=== PATIENT | female | born 1990 | race Caucasian/White ===

== ENCOUNTER 2019-01-30 18:38 | Emergency (ER) | payer SELFPAY ==
--- OUTSIDE RECORDS SUMMARY | 2019-01-30 18:40 | XMS REPORT ---
:1990 [facility] Address [address] [place] [address] [address] [place] [address] Care Team Providers Name Role Phone Unavailable Unavailable Unavailable Payers Payer Name Policy Type Policy Number Effective Date Expiration Date Problems This patient has no known problems. Allergies, Adverse Reactions, Alerts Allergy Allergy Status Severity Reaction(s) Onset Inactive Treating Comments Name Type Date Date Clinician No Known DA Active U 2012-12 Allergies -09 00:00:0 0 Medications This patient has no known medications.
[2019-01-30 19:47] LABS: Absolute Lymphocytes (CBC) 1.8 K/uL (0.7-4.9); Basophils % 1.2 % (0-1.3); Hematocrit 35.5 % (36.0-45.0); Lymphocytes % 35.3 % (15.3-44.8); MPV 8.6 fL (7.6-11.3); RBC Red Blood Cell Count 3.97 M/uL (3.86-4.86)
[2019-01-30 19:56] LABS: Urine Blood NEGATIVE (NEG); Urine Glucose NEGATIVE (NEG); Urine Protein NEGATIVE (NEG); Urine Specific Gravity 1.015 (1.005-1.030); Urine pH 7.5 (5.0-7.0)
[2019-01-30] MEDS ORDERED: NA CHLORIDE 0.9% 1,000 ML ONE (19:57)
[2019-01-30 20:08] LABS: Urine Bacteria LOADED /HPF (<20); Urine Culture Reflex Order REFLEXED; Urine RBC <5 /HPF (NONE SEEN)
[2019-01-30 20:08] LABS: Albumin 4.2 g/dL (3.4-5.0); Bilirubin Direct 0.1 mg/dL (0-0.2); Bilirubin Total 0.4 mg/dL (0.2-1.0); Potassium 3.4 mmol/L (3.5-5.1); Protein, Total 7.7 g/dL (6.4-8.2)
[2019-01-30] MEDS ORDERED: CEFTRIAXONE/SWI 1gm 1 GM/10 ML SYR ONE (21:09)
--- NOTE | 2019-01-30 23:43 | EDPHYS ---
Physician Documentation [facility] Name: Becca Sloan Age: 28 yrs Sex: Female : 1990 Arrival Date: 01/30/2019 Time: 18:42 Bed 24 Private MD: ED Physician Noé Hendrix HPI: 01/30 22:14 This 28 yrs old Female presents to ER via Ambulatory with complaints of tw4 Vomiting, Abdominal Swelling. 22:14 The patient presents to the emergency department with nausea, vomiting. tw4 22:14 Onset: The symptoms/episode began/occurred 1 month(s) ago. Possible causes:. The tw4 symptoms are aggravated by nothing. The symptoms are alleviated by nothing. The patient has not experienced similar symptoms in the past. 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 - Social history:: Smoking status: . - Ebola Screening: : Patient denies travel to an Ebola-affected area in the 21 days before illness onset. ROS: 22:14 Constitutional: Negative for fever, chills, and weight loss, Eyes: Negative for injury, tw4 pain, redness, and discharge, Cardiovascular: Negative for chest pain, palpitations, and edema, Respiratory: Negative for shortness of breath, cough, wheezing, and pleuritic chest pain, Abdomen/GI: Negative for abdominal pain, nausea, vomiting, diarrhea, and constipation, Back: Negative for injury and pain, Skin: Negative for injury, rash, and discoloration, Neuro: Negative for headache, weakness, numbness, tingling, and seizure. Exam: 22:14 Constitutional: This is a well developed, well nourished patient who is awake, alert, tw4 and in no acute distress. Head/Face: Normocephalic, atraumatic. Chest/axilla: Normal chest wall appearance and motion. Nontender with no deformity. No lesions are appreciated. Cardiovascular: Regular rate and rhythm with a normal S1 and S2. No gallops, murmurs, or rubs. Normal PMI, no JVD. No pulse deficits. Respiratory: Lungs have equal breath sounds bilaterally, clear to auscultation and percussion. No rales, rhonchi or wheezes noted. No increased work of breathing, no retractions or nasal flaring. Abdomen/GI: Soft, non-tender, with normal bowel sounds. No distension or tympany. No guarding or rebound. No evidence of tenderness throughout. Back: No spinal tenderness. No costovertebral tenderness. Full range of motion. MS/ Extremity: Pulses equal, no cyanosis. Neurovascular intact. Full, normal range of motion. Neuro: Awake and alert, GCS 15, oriented to person, place, time, and situation. Cranial nerves II-XII grossly intact. Motor strength 5/5 in all extremities. Sensory grossly intact. Cerebellar exam normal. Normal gait. Vital Signs: 19:08 BP 117 / 81; Pulse 80; Resp 17; Temp 98.5(TE); Pulse Ox 100% on R/A; Weight 61.23 kg tw2 (R); Height 5 ft. 9 in. (175.26 cm); Pain 5/10; 20:00 BP 121 / 81; Pulse 81; Resp 18; Pulse Ox 100% on R/A; mg2 23:42 BP 99 / 67; Pulse 73; Resp 18; Pulse Ox 100% on R/A; mg2 19:08 Body Mass Index 19.94 (61.23 kg, 175.26 cm) tw2 MDM: 19:11 Patient medically screened. la1 01/31 04:19 Data reviewed: vital signs, nurses notes. Data interpreted: Pulse oximetry: tw4 Interpretation: normal. Counseling: I had a detailed discussion with the patient and/or guardian regarding: the historical points, exam findings, and any diagnostic results supporting the discharge/admit diagnosis. Special discussion: I discussed with the patient/guardian in detail that at this point there is no indication for admission to the hospital. It is understood, however, that if the symptoms persist or worsen the patient needs to return immediately for re-evaluation. 01/30 19:13 Order name: Basic Metabolic Panel tw4 01/30 19:13 Order name: CBC with Diff tw4 01/30 19:13 Order name: Creatinine for Radiology [facility] 01/30 19:13 Order name: Hepatic Function [facility] 01/30 19:13 Order name: Lipase [facility] 01/30 19:45 Order name: Urine Microscopic Only; Complete Time: 22:51 mg2 01/30 19:13 Order name: IV Saline Lock; Complete Time: 19:32 tw4 01/30 19:48 Order name: Urine Dipstick--Ancillary (enter results) [facility] 01/30 19:48 Order name: Urine --Ancillary (enter results) [facility] 01/30 20:10 Order name: Urine Culture [facility] [place] 01/30 20:34 Order name: CT Abd/Pelvis - IV Contrast Only [facility] 01/30 22:53 Order name: US Abdomen Limited [facility] 01/30 19:13 Order name: Labs collected and sent; Complete Time: 19:32 tw4 Administered Medications: 01/30 19:58 Drug: NS 0.9% 1000 ml Route: IV; Rate: 1 bolus; Site: right antecubital; mg2 21:12 Follow up: Response: No adverse reaction; IV Status: Completed infusion; IV Intake: mg2 1000ml 21:12 Drug: Rocephin - (cefTRIAXone) 1 grams Route: IVPB; Infused Over: 30 mins; Site: right mg2 antecubital; 22:37 Follow up: Response: No adverse reaction; IV Status: Completed infusion mg2 Disposition: 01/30/19 23:42 Discharged to Home. Impression: Vomiting, unspecified, Cholelithiasis, Lower abdominal pain, unspecified, Urinary tract infection, site not specified. - Condition is Stable. - Discharge Instructions: Abdominal Pain, Adult, Biliary Colic, Adult, Nausea and Vomiting, Adult, Urinary Tract Infection, Adult. - Prescriptions for Zofran 4 mg Oral Tablet - take 1 tablet by ORAL route every 12 hours As needed; 6 tablet. Pyridium 200 mg Oral Tablet - take 1 tablet by ORAL route every 8 hours for 3 days; 9 tablet. Macrobid 100 mg Oral Capsule - take 1 capsule by ORAL route every 12 hours for 10 days; 20 capsule. - Medication Reconciliation Form, Thank You Letter, Antibiotic Education, Prescription Opioid Use form. - Follow up: Private Physician; When: Upon discharge from the Emergency Department; Reason: Recheck today's complaints, Continuance of care. - Problem is new. - Symptoms have improved. Signatures: Dispatcher [employer] EDMS Flaco Enrique, DIRECTOR BUSINESS INTEGRATION-C DIRECTOR BUSINESS INTEGRATION-Cla1 Cassidy Davis RN RN tw2 Noé Hendrix MD MD tw4 Gary Werner, RN RN mg2 Corrections: (The following items were deleted from the chart) 23:44 23:42 01/30/2019 23:42 Discharged to Home. Impression: Vomiting, unspecified; tw4 Cholelithiasis; Lower abdominal pain, unspecified. Condition is Stable. Forms are Medication Reconciliation Form, Thank You Letter, Antibiotic Education, Prescription Opioid Use. Follow up: Private Physician; When: Upon discharge from the Emergency Department; Reason: Recheck today's complaints, Continuance of care. Problem is new. Symptoms have improved. tw01/31 00:01 01/30 23:44 01/30/2019 23:42 Discharged to Home. Impression: Vomiting, unspecified; mg2 Cholelithiasis; Lower abdominal pain, unspecified; Urinary tract infection, site not specified. Condition is Stable. Discharge Instructions: Abdominal Pain, Adult, Biliary Colic, Adult, Nausea and Vomiting, Adult. Prescriptions for Zofran 4 mg Oral Tablet - take 1 tablet by ORAL route every 12 hours As needed; 6 tablet. and Forms are Medication Reconciliation Form, Thank You Letter, Antibiotic Education, Prescription Opioid Use. Follow up: Private Physician; When: Upon discharge from the Emergency Department; Reason: Recheck today's complaints, Continuance of care. Problem is new. Symptoms have improved. tw4
--- NOTE | 2019-01-30 23:43 | ER ---
Nurse's Notes [facility] Name: Becca Sloan Age: 28 yrs Sex: Female : 1990 Arrival Date: 01/30/2019 Time: 18:42 Bed 24 Private MD: Diagnosis: Vomiting, unspecified;Cholelithiasis;Lower abdominal pain, unspecified;Urinary tract infection, site not specified Presentation: 01/30 19:06 Presenting complaint: Patient states: for about a month now i havent been able to keep tw2 anything, not even liquids, and my i have a swollen stomach for about a month. Transition of care: patient was not received from another setting of care. Onset of symptoms was January 30, 2019. Risk Assessment: Do you want to hurt yourself or someone else? Patient reports no desire to harm self or others. Initial Sepsis Screen: Does the patient meet any 2 criteria? No. Patient's initial sepsis screen is negative. Does the patient have a suspected source of infection? No. Patient's initial sepsis screen is negative. Care prior to arrival: None. 19:06 Method Of Arrival: Ambulatory tw2 19:06 Acuity: GREGG 3 tw2 Triage Assessment: 19:07 General: Appears in no apparent distress. slender, Behavior is calm, cooperative, tw2 appropriate for age. Pain: Complains of pain in abdomen. GI: Reports lower abdominal pain, upper abdominal pain, constipation, diarrhea, intolerance of fluids, intolerance of food, nausea. 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 - Social history:: Smoking status: . - Ebola Screening: : Patient denies travel to an Ebola-affected area in the 21 days before illness onset. Screenin:40 Abuse screen: Denies threats or abuse. Denies injuries from another. Nutritional mg2 screening: No deficits noted. Tuberculosis screening: No symptoms or risk factors identified. Fall Risk IV access (20 points). Assessment: 20:39 General: Appears in no apparent distress. comfortable, Behavior is calm, cooperative. mg2 Pain: Complains of pain in abdomen Pain does not radiate. Pain currently is 5 out of 10 on a pain scale. Quality of pain is described as aching, Pain began gradually, Is intermittent. Neuro: Level of Consciousness is awake, alert, obeys commands, Oriented to person, place, time, situation. Cardiovascular: Capillary refill < 3 seconds Patient's skin is warm and dry. Respiratory: Airway is patent Respiratory effort is even, unlabored, Respiratory pattern is regular, symmetrical. GI: Abdomen is non-distended, Reports lower abdominal pain, vomiting. : Urine is cloudy. EENT: No signs and/or symptoms were reported regarding the EENT system. Derm: Skin is intact, is healthy with good turgor, Skin is pink, warm \T\ dry. normal. Musculoskeletal: Circulation, motion, and sensation intact. Capillary refill < 3 seconds. 22:37 Reassessment: Patient appears in no apparent distress at this time. Patient and/or mg2 family updated on plan of care and expected duration. Pain level reassessed. Patient is alert, oriented x 3, equal unlabored respirations, skin warm/dry/pink. 22:55 Reassessment: Patient appears in no apparent distress at this time. Patient and/or mg2 family updated on plan of care and expected duration. Pain level reassessed. Patient is alert, oriented x 3, equal unlabored respirations, skin warm/dry/pink. patient informed that she will do abdominal ultrasound tonight. 23:04 Reassessment: pile driving technician at bedside doing the procedure. mg2 01/31 00:00 Reassessment: Patient denies pain at this time. Patient states feeling better. mg2 Vital Signs: 01/30 19:08 BP 117 / 81; Pulse 80; Resp 17; Temp 98.5(TE); Pulse Ox 100% on R/A; Weight 61.23 kg tw2 (R); Height 5 ft. 9 in. (175.26 cm); Pain 5/10; 20:00 BP 121 / 81; Pulse 81; Resp 18; Pulse Ox 100% on R/A; mg2 23:42 BP 99 / 67; Pulse 73; Resp 18; Pulse Ox 100% on R/A; mg2 19:08 Body Mass Index 19.94 (61.23 kg, 175.26 cm) tw2 ED Course: 18:42 Patient arrived in ED. mr 19:07 Triage completed. tw2 19:07 Arm band placed on. tw2 19:12 Noé Hendrix MD is Attending Physician. tw4 19:25 Gary Werner, TYLER is Primary Nurse. mg2 19:31 Initial lab(s) drawn, by me, sent to lab. Inserted saline lock: 20 gauge in right lt1 antecubital area, using aseptic technique. 20:41 Patient has correct armband on for positive identification. mg2 20:41 No provider procedures requiring assistance completed. mg2 21:10 CT Abd/Pelvis - IV Contrast Only In Process Unspecified. EDMS 23:23 US Abdomen Limited In Process Unspecified. EDMS 01/31 00:01 IV discontinued, intact, bleeding controlled, No redness/swelling at site. Pressure mg2 dressing applied. Administered Medications: 01/30 19:58 Drug: NS 0.9% 1000 ml Route: IV; Rate: 1 bolus; Site: right antecubital; mg2 21:12 Follow up: Response: No adverse reaction; IV Status: Completed infusion; IV Intake: mg2 1000ml 21:12 Drug: Rocephin - (cefTRIAXone) 1 grams Route: IVPB; Infused Over: 30 mins; Site: right mg2 antecubital; 22:37 Follow up: Response: No adverse reaction; IV Status: Completed infusion mg2 Intake: 21:12 IV: 1000ml; Total: 1000ml. mg2 Outcome: 23:42 Discharge ordered by . tw4 01/31 00:01 Discharged to home ambulatory, with family. mg2 Condition: stable Discharge instructions given to patient, family, Instructed on discharge instructions, follow up and referral plans. medication usage, Demonstrated understanding of instructions, follow-up care, medications, Prescriptions given X 3. 00:01 Patient left the ED. mg2 Addendum: 02/02/2019 08:51 Addendum: Culture Results: Positive urine culture. No further action required. Bacteria i w sensitive to prescribed antibiotic. Signatures: Dispatcher [employer] EDMI Jojo Benjamin Gianna Ch RN RN iw Cassidy Davis RN RN tw2 Noé Hendrix MD MD tw4 Gardose, Gary, RN RN mg2 Silveira, Radha lt1
[2019-01-31 02:49] VITALS: TEMP 98.5; O2SAT 100
[2019-01-31 02:52] VITALS: BP 99/67
--- NOTE | 2019-01-31 08:04 | RAD REPORT ---
EXAM DESCRIPTION: US - Abdomen Exam Limited - 01/30/2019 11:23 pm CLINICAL HISTORY: Abdominal pain. COMPARISON: None. FINDINGS: Multiple gallstones. The gallbladder wall is not thickened. The biliary tree is normal caliber. IMPRESSION: Cholelithiasis without evidence cholecystitis
--- NOTE | 2019-01-31 10:47 | RAD REPORT ---
EXAM DESCRIPTION: CT - Abdomen Pelvis W Contrast - 01/31/2019 3:09 am CLINICAL HISTORY: 28 years Female ABD PAIN TECHNIQUE: Contiguous axial images obtained through the abdomen and pelvis following intravenous con trast administration. Coronal and sagittal reformatted images provided. This CT exam was performed according to our departmental dose-optimization program, which includes on e or more of the following dose reduction techniques: automated exposure control, adjustment of the m A and/or kV according to patient size, and/or use of iterative reconstruction technique. COMPARISON: No prior exams provided for comparison. FINDINGS: There are multiple gallstones noted, including a 7 mm stone in the gallbladder neck. Possi ble mild gallbladder wall thickening without definite pericholecystic fluid or biliary dilatation. The lung bases, liver, pancreas, spleen, adrenal glands, kidneys, uterus, and urinary bladder are nor mal. There is trace free fluid in the cul-de-sac with right ovarian follicles, a partially collapsed left ovarian corpus luteum, and mild venous prominence in the left adnexa. There is no bowel inflammation, obstruction, or free intraperitoneal air. The appendix is normal. No abdominal aortic aneurysm. Mild levoconvex curvature of the upper lumbar spine without acute fract ure or aggressive osseous lesion. IMPRESSION: Cholelithiasis with possible mild gallbladder wall thickening. If there is right upper q uadrant pain, ultrasound is recommended. Trace free fluid in the cul-de-sac with a left ovarian corpus luteum in right ovarian follicles, phys iologic in appearance. No other acute findings in the abdomen or pelvis. Normal appendix. Electronically signed by: Patty Weir MD 01/30/2019 9:42 PM FINANCIAL SERVICES REPRESENTATIVE Due to temporary technical issues with the PACS/Fluency reporting system, reports are being signed by the in house radiologist as a courtesy to ensure prompt reporting. The interpreting radiologist is f ositoly responsible for the content of the report.
== END 2019-01-31 00:01 | disposition home or self-care (01) ==
LOC: ER 18:38
DX: K80.20 Calculus of gallbladder without cholecystitis without obstruction (principal); N39.0 Urinary tract infection, site not specified; R10.30 Lower abdominal pain, unspecified; F60.3 Borderline personality disorder
CPT/HCPCS: 36415; 74177; 76705; 80048; 80076; 81003; 81015; 81025; 83690; 85025; 87077; 87086; 87088; 87186; 96361; 96365; 99284; J0696; J7030; Q9967

== ENCOUNTER 2019-10-28 14:51 | Emergency (ER) | payer SELFPAY ==
--- OUTSIDE RECORDS SUMMARY | 2019-10-28 14:53 | XMS REPORT | Continuity of Care Document ---
:1990 Author Organization [facility] t Address [address] [place] [address] Care Team Providers Name Role Phone Unavailable Unavailable Unavailable Payers Payer Name Policy Type Policy Number Effective Date Expiration Date S ource Problems This patient has no known problems. Allergies, Adverse Reactions, Alerts Allergy Allergy Status Severity Reaction(s) Onset Inactive Treating Comm ents Source Name Type Date Date Clinician No Known DA Active U 2012-02 [facility] Allergie 02-27 Clear s 00:00: Mackey 00 [facility] Medications This patient has no known medications. Procedures This patient has no known procedures. Results This patient has no known results.
[2019-10-28] MEDS ORDERED: NA CHLORIDE 0.9% 1,000 ML ONE (15:39)
[2019-10-28] MEDS ORDERED: MORPHINE 4 MG/ML SYR ONE (15:39)
[2019-10-28] MEDS ORDERED: ONDANSETRON 4 MG/2 ML VIAL ONE (15:39)
[2019-10-28 15:51] LABS: Urine Blood TRACE (NEG); Urine Glucose NEGATIVE (NEG); Urine Protein NEGATIVE (NEG); Urine Specific Gravity 1.025 (1.005-1.030)
[2019-10-28 15:52] LABS: Absolute Lymphocytes (CBC) 1.4 K/uL (0.7-4.9); Basophils % 0.8 % (0-1.3); Hematocrit 34.1 % (36.0-45.0); Lymphocytes % 29.6 % (15.3-44.8); MPV 8.8 fL (7.6-11.3); RBC Red Blood Cell Count 3.95 M/uL (3.86-4.86)
[2019-10-28 16:05] LABS: BUN Blood Urea Nitrogen 13 mg/dL (7-18); Bicarbonate 29 mmol/L (21-32); Glucose Level 117 mg/dL (74-106); Potassium 3.4 mmol/L (3.5-5.1); Sodium Level 141 mmol/L (136-145)
--- NOTE | 2019-10-28 16:36 | RAD REPORT ---
EXAM DESCRIPTION: CT - Abdomen Pelvis W Contrast - 10/28/2019 4:22 pm CLINICAL HISTORY: ABD PAIN, right lower quadrant pain, diarrhea, history of endometriosis COMPARISON: Abdomen Pelvis W Contrast dated 01/30/2019 TECHNIQUE: Biphasic, helical CT imaging of the abdomen and pelvis was performed following 100 ml non -ionic IV contrast. No oral contrast given. All CT scans are performed using dose optimization technique as appropriate and may include automated exposure control or mA/KV adjustment according to patient size. FINDINGS: No suspicious findings in the lung bases. The liver, spleen, and pancreas show no suspicious findings. Multi stone cholelithiasis noted as prev iously seen. No active gallbladder or biliary tree finding. Symmetric renal function is seen with no hydronephrosis or suspicious renal mass. No pyelonephritis o r acute parenchymal process. No bladder abnormalities. No adrenal abnormalities. Uterus and ovaries s how no suspicious findings. Tubal ligation clips are present. No dilated bowel loops or bowel wall thickening. Appendix is identified and normal. Moderate stool vo lume is present in the colon. No free air or pneumatosis. Trace free fluid in the pelvis is within ph ysiologic limits. No hernia, mass or bulky lymphadenopathy. No suspicious bony findings. IMPRESSION: Contrast enhanced CT abdomen and pelvis showing no significant or suspicious finding.
--- NOTE | 2019-10-28 16:49 | EDPHYS ---
Physician Documentation [facility] Name: eBcca Sloan Age: 29 yrs Sex: Female : 1990 Arrival Date: 10/28/2019 Time: 14:53 Bed 7 Private MD: ED Physician Boo Cisneros HPI: 10/27 15:21 This 29 yrs old Female presents to ER via Ambulatory with complaints of kb Abdominal Pain. 15:21 The patient presents with abdominal pain right lower quadrant. Onset: The kb symptoms/episode began/occurred 4 hour(s) ago. The symptoms do not radiate. Associated signs and symptoms: none. Pertinent negatives: nausea, vomiting, and diarrhea, fever. The symptoms are described as constant. Modifying factors: The symptoms are alleviated by nothing, the symptoms are aggravated by pressure, walking. Severity of pain: At its worst the pain was moderate in the emergency department the pain is unchanged. The patient has not experienced similar symptoms in the past. The patient has not recently seen a physician. Pt reports RLQ pain that started at 1030 this morning. States pain has been constant and sharp. Denies associated symptoms. BUFFERER: 17:22 LMP 10/26/2019 jr10 Historical: - Allergies: 14:57 No Known Allergies; ll1 - PMHx: 14:57 Anemia; BORDERLINE PERSONALITY DISORDER; Endometrosis; Bipolar disorder; ll1 - PSHx: 14:57 Tubal ligation; ll1 - Immunization history:: Flu vaccine is not up to date. - Social history:: Smoking status: Patient reports the use of cigarette tobacco products, smokes one-half pack cigarettes per day, Patient uses alcohol, only on a social basis. Patient/guardian denies using street drugs. ROS: 15:19 Constitutional: Negative for fever, chills, and weight loss, Cardiovascular: Negative kb for chest pain, palpitations, and edema, Respiratory: Negative for shortness of breath, cough, wheezing, and pleuritic chest pain, Back: Negative for injury and pain, MS/Extremity: Negative for injury and deformity, Skin: Negative for injury, rash, and discoloration, Neuro: Negative for headache, weakness, numbness, tingling, and seizure. 15:19 Abdomen/GI: Positive for abdominal pain, Negative for nausea, vomiting, and diarrhea. Exam: 15:19 Constitutional: This is a well developed, well nourished patient who is awake, alert, kb and in no acute distress. Head/Face: Normocephalic, atraumatic. Chest/axilla: Normal chest wall appearance and motion. Nontender with no deformity. No lesions are appreciated. Cardiovascular: Regular rate and rhythm with a normal S1 and S2. No gallops, murmurs, or rubs. Normal PMI, no JVD. No pulse deficits. Respiratory: Lungs have equal breath sounds bilaterally, clear to auscultation and percussion. No rales, rhonchi or wheezes noted. No increased work of breathing, no retractions or nasal flaring. Back: No spinal tenderness. No costovertebral tenderness. Full range of motion. Skin: Warm, dry with normal turgor. Normal color with no rashes, no lesions, and no evidence of cellulitis. MS/ Extremity: Pulses equal, no cyanosis. Neurovascular intact. Full, normal range of motion. Neuro: Awake and alert, GCS 15, oriented to person, place, time, and situation. Cranial nerves II-XII grossly intact. Motor strength 5/5 in all extremities. Sensory grossly intact. Cerebellar exam normal. Normal gait. 15:19 Abdomen/GI: Inspection: abdomen appears normal, Bowel sounds: normal, in all quadrants, Palpation: soft, in all quadrants, moderate abdominal tenderness, in the right lower quadrant. Vital Signs: 14:56 BP 112 / 90; Pulse 82; Resp 17; Temp 98.0; Pulse Ox 100% ; Pain 8/10; ll1 15:55 BP 106 / 73; Pulse 87; Resp 18; Pulse Ox 97% on R/A; jr10 17:19 BP 110 / 79; Pulse 84; Resp 17; Pulse Ox 97% on R/A; jr10 MDM: 15:00 Patient medically screened. kb 15:21 Data reviewed: vital signs, nurses notes. Data interpreted: Pulse oximetry: on room air kb is 100 %. Interpretation: normal. 16:46 Counseling: I had a detailed discussion with the patient and/or guardian regarding: the kb historical points, exam findings, and any diagnostic results supporting the discharge/admit diagnosis, lab results, radiology results, the need for outpatient follow up, an OB/Gyne specialist, to return to the emergency department if symptoms worsen or persist or if there are any questions or concerns that arise at home. ED course: Pt reports the pain started like pain she has had before with endometriosis, but that pain doesn't normally last this long. Educated on diagnostic findings and need for follow up with TABLET MACHINE OPERATOR if pain persists. Pt will take Tylenol/Advil as needed for pain at home. . 10/27 15:02 Order name: Basic Metabolic Panel; Complete Time: 16:07 kb 10/27 15:02 Order name: CBC with Diff; Complete Time: 16:05 kb 10/27 15:02 Order name: CT Abd/Pelvis - IV Contrast Only; Complete Time: 16:38 kb 10/27 15:45 Order name: Urine Dipstick--Ancillary (enter results); Complete Time: 15:57 em1 10/27 15:45 Order name: Urine --Ancillary (enter results); Complete Time: 15:57 em1 10/27 15:02 Order name: IV Saline Lock; Complete Time: 15:56 kb 10/27 15:02 Order name: Labs collected and sent; Complete Time: 15:56 kb 10/27 15:02 Order name: Urine Test (obtain specimen); Complete Time: 15:29 kb 10/27 15:02 Order name: Urine Dipstick-Ancillary (obtain specimen); Complete Time: 15:29 kb Administered Medications: 15:54 Drug: NS 0.9% 1000 ml Route: IV; Rate: 1000 ml; Site: right forearm; jr10 17:21 Follow up: Response: No adverse reaction; IV Status: Completed infusion jr10 15:54 Drug: Zofran (Ondansetron) 4 mg Route: IVP; Site: right forearm; jr10 17:20 Follow up: Response: No adverse reaction jr10 15:54 Drug: morphine 4 mg Route: IVP; Site: right forearm; jr10 17:20 Follow up: Response: No adverse reaction jr10 17:21 Drug: [place] (7.5 mg-325 mg) 1 tabs Route: PO; jr10 17:23 Follow up: Response: No adverse reaction jr10 Disposition: 17:46 Co-signature as Attending Physician, Boo Cisneros MD. rn Disposition: 10/28/19 16:48 Discharged to Home. Impression: Abdominal and pelvic pain. - Condition is Stable. - Discharge Instructions: Endometriosis, Pelvic Pain, Female, [id number], Abdominal Pain, Adult, [id number]. - Medication Reconciliation Form, Thank You Letter, Antibiotic Education, Prescription Opioid Use form. - Follow up: Emergency Department; When: As needed; Reason: Worsening of condition. Follow up: Private Physician; When: 2 - 3 days; Reason: Recheck today's complaints, Continuance of care, Re-evaluation by your physician. Signatures: Dispatcher [employer] EDMA Asha Hartmann, TOYS AND GAMES HAND FINISHER-C TOYS AND GAMES HAND FINISHER-CkBoo Pierce MD MD rn Lewis, Lynsay, RN RN ll1 Dana Benjamin RN RN jr10 Corrections: (The following items were deleted from the chart) 17:23 16:48 10/28/2019 16:48 Discharged to Home. Impression: Abdominal and pelvic pain. jr10 Condition is Stable. Forms are Medication Reconciliation Form, Thank You Letter, Antibiotic Education, Prescription Opioid Use. Follow up: Emergency Department; When: As needed; Reason: Worsening of condition. Follow up: Private Physician; When: 2 - 3 days; Reason: Recheck today's complaints, Continuance of care, Re-evaluation by your physician. kb
--- NOTE | 2019-10-28 16:49 | ER ---
Nurse's Notes [facility] Name: Becca Sloan Age: 29 yrs Sex: Female : 1990 Arrival Date: 10/28/2019 Time: 14:53 Bed 7 Private MD: Diagnosis: Abdominal and pelvic pain Presentation: 10/27 14:56 Chief complaint: Patient states: Right sided lower abdominal pain for 1 day. No fever. ll1 1 diarrhea stool yesterday. Coronavirus screen: Client denies travel out of the [place] in the last 14 days. At this time, the client does not indicate any symptoms associated with coronavirus-19. Ebola Screen: Patient denies travel to an Ebola-affected area in the 21 days before illness onset. Initial Sepsis Screen: Does the patient meet any 2 criteria? No. Patient's initial sepsis screen is negative. Risk Assessment: Do you want to hurt yourself or someone else? Patient reports no desire to harm self or others. Onset of symptoms was October 28, 2019. 14:56 Method Of Arrival: Ambulatory 1 14:56 Acuity: GREGG 3 ll1 17:22 Initial Sepsis Screen: Does the patient have a suspected source of infection? No. jr10 Patient's initial sepsis screen is negative. 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 - Social history:: Smoking status: Patient reports the use of cigarette tobacco products, smokes one-half pack cigarettes per day, Patient uses alcohol, only on a social basis. Patient/guardian denies using street drugs. Screenin:50 Abuse screen: Denies threats or abuse. Denies injuries from another. Nutritional jr10 screening: No deficits noted. Tuberculosis screening: No symptoms or risk factors identified. Fall Risk IV access (20 points). Assessment: 15:51 General: Appears in no apparent distress. Behavior is appropriate for age. Pain: jr10 Complains of pain in right lower quadrant Pain does not radiate. Pain currently is 7 out of 10 on a pain scale. Quality of pain is described as crampy, tender, Pain began 1030 this morning Is continuous. Neuro: No deficits noted. Cardiovascular: No deficits noted. Respiratory: No deficits noted. GI: Abdomen is non-distended, Bowel sounds present X 4 quads. Abd is soft X 4 quads Abdomen is tender to palpation in right lower quadrant Reports lower abdominal pain, Patient currently denies diarrhea, nausea, vomiting, reports hx of ovarian cysts and endometriosis. : No deficits noted. No signs and/or symptoms were reported regarding the genitourinary system. Denies burning with urination, discharge, urinary frequency, urgency. EENT: No deficits noted. No signs and/or symptoms were reported regarding the EENT system. Derm: No deficits noted. No signs and/or symptoms reported regarding the dermatologic system. Musculoskeletal: No deficits noted. No signs and/or symptoms reported regarding the musculoskeletal system. Vital Signs: 14:56 BP 112 / 90; Pulse 82; Resp 17; Temp 98.0; Pulse Ox 100% ; Pain 8/10; ll1 15:55 BP 106 / 73; Pulse 87; Resp 18; Pulse Ox 97% on R/A; jr10 17:19 BP 110 / 79; Pulse 84; Resp 17; Pulse Ox 97% on R/A; jr10 ED Course: 14:53 Patient arrived in ED. as 14:57 Triage completed. ll1 14:58 Arm band placed on Patient placed in an exam room, on a stretcher. ll1 15:00 Asha Hartmann FNP-C is [facility]. kb 15:00 Boo Cisneros MD is Attending Physician. kb 15:16 Dana Benjamin RN is Primary Nurse. jr10 15:50 Patient has correct armband on for positive identification. Placed in gown. Bed in low jr10 position. Call light in reach. Side rails up X2. Pulse ox on. NIBP on. 15:50 No provider procedures requiring assistance completed. Inserted saline lock: 20 gauge jr10 in right forearm, using aseptic technique. IV is patent, is intact, with fluids infusing freely, with good blood return, Flushed. 16:[address] via stretcher. jr10 16:22 CT Abd/Pelvis - IV Contrast Only In Process Unspecified. EDMS 17:21 IV discontinued, intact, bleeding controlled, No redness/swelling at site. Pressure jr10 dressing applied. Administered Medications: 15:54 Drug: NS 0.9% 1000 ml Route: IV; Rate: 1000 ml; Site: right forearm; jr10 17:21 Follow up: Response: No adverse reaction; IV Status: Completed infusion jr10 15:54 Drug: Zofran (Ondansetron) 4 mg Route: IVP; Site: right forearm; jr10 17:20 Follow up: Response: No adverse reaction jr10 15:54 Drug: morphine 4 mg Route: IVP; Site: right forearm; jr10 17:20 Follow up: Response: No adverse reaction jr10 17:21 Drug: [place] (7.5 mg-325 mg) 1 tabs Route: PO; jr10 17:23 Follow up: Response: No adverse reaction jr10 Outcome: 16:48 Discharge ordered by . jaime 17:22 Discharged to home ambulatory. jr10 17:22 Condition: improved 17:22 Discharge instructions given to patient, Instructed on discharge instructions, follow up and referral plans. Demonstrated understanding of instructions, follow-up care. 17:23 Patient left the ED. jr10 Signatures: Dispatcher [employer] EDMS Asha Hartmann, HOUSE MOVER SUPERVISOR-C HOUSE MOVER SUPERVISOR-Lisa Méndez Lynsay, RN RN ll1 Dana Benjamin RN RN jr10
[2019-10-28] MEDS ORDERED: HYDROCODONE/APAP 7.5/325 MG TAB ONE (17:29)
[2019-10-28 21:02] VITALS: TEMP 98
[2019-10-28 21:03] VITALS: O2SAT 97
[2019-10-28 21:04] VITALS: BP 110/79
== END 2019-10-28 17:23 | disposition home or self-care (01) ==
LOC: ER 14:51
DX: R10.2 Pelvic and perineal pain (principal); F17.210 Nicotine dependence, cigarettes, uncomplicated
CPT/HCPCS: 36415; 74177; 80048; 81003; 81025; 85025; 96361; 96374; 96375; 99284; J2405; J7030; Q9967

== ENCOUNTER 2020-12-05 20:37 | Emergency (ER) | payer OTHER, SELFPAY ==
[2020-12-05] MEDS ORDERED: HYDROCODONE/APAP 10/325 TAB ONE (21:58)
[2020-12-05] MEDS ORDERED: TETANUS & DIPHTHERIA TOX,ADULT 0.5 ML VIAL ONE (21:59)
[2020-12-05] MEDS ORDERED: AMPICILLIN/SULBACT 1.5GM VIAL ONE (21:59)
[2020-12-05] MEDS ORDERED: NA CHLORIDE 0.9% 100 ML ONE (21:59)
--- NOTE | 2020-12-05 22:26 | ER ---
Nurse's Notes [facility] Name: Becca Sloan Age: 30 yrs Sex: Female : 1990 Arrival Date: 12/05/2020 Time: 20:55 Bed 23 Private MD: Diagnosis: Bitten by cat-puncture wound left middle finger Presentation: 12/05 21:25 Chief complaint: Patient states: Bitten by her own cat yesterday, puncture wound to lp1 right middle finger, redness and swelling noted. Coronavirus screen: At this time, the client does not indicate any symptoms associated with coronavirus-19. Ebola Screen: No symptoms or risks identified at this time. Risk Assessment: Do you want to hurt yourself or someone else? Patient reports no desire to harm self or others. Onset of symptoms was December 04, 2020. 21:25 Method Of Arrival: Ambulatory lp1 21:25 Acuity: GREGG 4 lp1 21:25 Initial Sepsis Screen: Does the patient meet any 2 criteria? No. Patient's initial lp1 sepsis screen is negative. Does the patient have a suspected source of infection? No. Patient's initial sepsis screen is negative. Triage Assessment: 21:45 Injury Description: Bite sustained to palmar aspect of middle phalanx of right middle lp1 finger and palmar aspect of proximal phalanx of right middle finger caused by a cat, is infected, from animal. 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 - Social history:: Smoking status: Patient reports the use of cigarette tobacco products, smokes one-half pack cigarettes per day. Screenin:27 Abuse screen: Denies threats or abuse. Denies injuries from another. Nutritional lp1 screening: No deficits noted. Tuberculosis screening: No symptoms or risk factors identified. Fall Risk None identified. Assessment: 21:30 General: Appears in no apparent distress. Behavior is calm, cooperative, appropriate lp1 for age. Pain: Complains of pain in palmar aspect of middle phalanx of right middle finger and palmar aspect of proximal phalanx of right middle finger Pain currently is 5 out of 10 on a pain scale. Quality of pain is described as aching. Neuro: No deficits noted. Cardiovascular: No deficits noted. Respiratory: No deficits noted. GI: No signs and/or symptoms were reported involving the gastrointestinal system. : No signs and/or symptoms were reported regarding the genitourinary system. EENT: No signs and/or symptoms were reported regarding the EENT system. Derm: Wound noted palmar aspect of middle phalanx of right middle finger and palmar aspect of proximal phalanx of right middle finger Wound is Small puncture wound noted, swelling, redness to site. Musculoskeletal: Circulation, motion, and sensation intact. Swelling present in palmar aspect of middle phalanx of right middle finger and palmar aspect of proximal phalanx of right middle finger. Vital Signs: 21:25 BP 110 / 79; Pulse 95; Resp 16; Temp 97.6(O); Pulse Ox 99% on R/A; Weight 58.97 kg (R); lp1 Height 5 ft. 9 in. (175.26 cm); Pain 6/10; 21:25 Body Mass Index 19.20 (58.97 kg, 175.26 cm) lp1 ED Course: 20:55 Patient arrived in ED. ja2 21:11 Lewis Avendano NP is PHCP. pm1 21:11 Curly Gomez MD is Attending Physician. pm1 21:25 Maisha Platt, TYLER is Primary Nurse. lp1 21:26 Triage completed. lp1 21:26 Arm band placed on. lp1 21:30 Patient has correct armband on for positive identification. lp1 21:40 Inserted saline lock: 22 gauge in right antecubital area, using aseptic technique. lp1 21:59 Hand Right 3 View XRAY In Process Unspecified. EDMS 22:24 Micha Valente MD is Referral Physician. pm1 22:40 No provider procedures requiring assistance completed. IV discontinued, No lp1 redness/swelling at site. Pressure dressing applied. 22:40 Wound care: to puncture located on palmar aspect of middle phalanx of right middle lp1 finger and palmar aspect of proximal phalanx of right middle finger was dressed with Neosporin, band aid. Administered Medications: 21:40 Drug: [place] (HYDROcodone-acetaminophen) 10 mg-325 mg 1 tabs Route: PO; lp1 22:24 Follow up: Response: No adverse reaction pkl 21:40 Drug: Tetanus-Diphtheria Toxoid Adult 0.5 ml {Post Closer: [employer]. Exp: lp1 07/02/2022. Lot #: [id number]. } Route: IM; Site: left deltoid; 22:24 Follow up: Response: No adverse reaction pkl 21:40 Drug: Unasyn (ampicillin-sulbactam) 1.5 grams Route: IVPB; Infused Over: 30 mins; Site: lp1 right antecubital; 22:23 Follow up: IV Status: Completed infusion; IV Intake: 100ml pkl Intake: 22:23 IV: 100ml; Total: 100ml. pkl Outcome: 22:25 Discharge ordered by . pm1 22:40 Discharged to home ambulatory. lp1 22:40 Condition: good 22:40 Discharge instructions given to patient, Instructed on discharge instructions, follow up and referral plans. medication usage, wound care, Demonstrated understanding of instructions, follow-up care, medications, wound care, Prescriptions given X 2. 22:41 Patient left the ED. lp1 Signatures: Dispatcher [employer] Maisha Turner RN RN lp1 Lewis Avendano, SAÚL CONCRETE SWIMMING POOL INSTALLER pm1 Dana Colon Pin MD pkl
--- NOTE | 2020-12-05 22:26 | EDPHYS ---
Physician Documentation [facility] Name: Becca Sloan Age: 30 yrs Sex: Female : 1990 Arrival Date: 12/05/2020 Time: 20:55 Bed 23 Private MD: ED Physician Curly Gomez HPI: 12/05 21:34 This 30 yrs old Female presents to ER via Ambulatory with complaints of Hand pm1 Injury. 21:34 The patient or guardian reports a bite, cat. The complaints affect the palmar aspect of pm1 proximal phalanx of right middle finger. Context: The problem was sustained at home, resulted from Breaking up fight between her dog and cat. Onset: The symptoms/episode began/occurred yesterday. Modifying factors: The symptoms are alleviated by splinting, the symptoms are aggravated by movement. Associated signs and symptoms: Pertinent positives: Swelling, Pertinent negatives: cyanosis distally, decreased sensation distally, fever, numbness distally, tingling distally. Severity of symptoms: in the emergency department the symptoms are actually worse. The patient has not experienced similar symptoms in the past. The patient has not recently seen a physician. 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 - Social history:: Smoking status: Patient reports the use of cigarette tobacco products, smokes one-half pack cigarettes per day. ROS: 21:34 Constitutional: Negative for fever, chills, and weight loss, Cardiovascular: Negative pm1 for chest pain, palpitations, and edema, Respiratory: Negative for shortness of breath, cough, wheezing, and pleuritic chest pain. 21:34 Skin: Negative for injury, rash, and discoloration, Neuro: Negative for headache, weakness, numbness, tingling, and seizure. 21:34 MS/extremity: Positive for bite, pain, swelling, of the palmar aspect of proximal phalanx of right middle finger, Negative for decreased range of motion, deformity, paresthesias, tingling. 21:34 All other systems are negative. Exam: 21:34 Constitutional: This is a well developed, well nourished patient who is awake, alert, pm1 and in no acute distress. Head/Face: Normocephalic, atraumatic. 21:34 Cardiovascular: Exam negative for acute changes, Rate: normal, Rhythm: regular, Pulses: no pulse deficits are appreciated, Brisk cap refill present to the third right middle finger. 21:34 Respiratory: Exam negative for acute changes, respiratory distress, shortness of breath. 21:34 Skin: Appearance: normal except for affected area, abscess, not appreciated, cellulitis, that is minimal, on the palmar aspect of proximal phalanx of right middle finger, injury, bite(s), of the palmar aspect of proximal phalanx of right middle finger, 4 total bites present. To present to the palmar aspect of proximal phalanx of right middle finger and 2 to lateral aspect of proximal phalanx of right middle, Negative for [place] signs. 21:34 Neuro: Exam negative for acute changes, Orientation: is normal, Mentation: is normal, Motor: is normal, moves all fours. Vital Signs: 21:25 BP 110 / 79; Pulse 95; Resp 16; Temp 97.6(O); Pulse Ox 99% on R/A; Weight 58.97 kg (R); lp1 Height 5 ft. 9 in. (175.26 cm); Pain 6/10; 21:25 Body Mass Index 19.20 (58.97 kg, 175.26 cm) lp1 MDM: 21:11 Patient medically screened. pm1 21:16 Special discussion: I discussed in detail with the patient the higher chance of wound pm1 infection based on his presenting history. 22:24 Data reviewed: vital signs. Data interpreted: Pulse oximetry: on room air is 99 %. pm1 Interpretation: normal. Counseling: I had a detailed discussion with the patient and/or guardian regarding: the historical points, exam findings, and any diagnostic results supporting the discharge/admit diagnosis, radiology results, the need for outpatient follow up, a hand specialist, to return to the emergency department if symptoms worsen or persist or if there are any questions or concerns that arise at home. 22:28 ED course: ORE DIGGER aware reviewed. pm1 12/05 21:16 Order name: Hand Right 3 View XRAY pm1 Administered Medications: 21:40 Drug: [place] (HYDROcodone-acetaminophen) 10 mg-325 mg 1 tabs Route: PO; lp1 22:24 Follow up: Response: No adverse reaction pkl 21:40 Drug: Tetanus-Diphtheria Toxoid Adult 0.5 ml {Tar Leveler: [employer]. Exp: lp1 07/02/2022. Lot #: [id number]. } Route: IM; Site: left deltoid; 22:24 Follow up: Response: No adverse reaction pkl 21:40 Drug: Unasyn (ampicillin-sulbactam) 1.5 grams Route: IVPB; Infused Over: 30 mins; Site: lp1 right antecubital; 22:23 Follow up: IV Status: Completed infusion; IV Intake: 100ml pkl Disposition: 23:25 Co-signature as Attending Physician, Curly Gomez MD. pkl Disposition Summary: 12/05/20 22:25 Discharge Ordered Location: Home pm1 Problem: new pm1 Symptoms: have improved pm1 Condition: Stable pm1 Diagnosis - Bitten by cat - puncture wound left middle finger pm1 Followup: pm1 - With: Emergency Department - When: As needed - Reason: Worsening of condition Followup: pm1 - With: Micha Valente MD - When: 2 - 3 days - Reason: Recheck today's complaints, Continuance of care, Re-evaluation by your physician Discharge Instructions: - Discharge Summary Sheet pm1 - Puncture Wound pm1 - Animal Bite, Adult pm1 Forms: - Medication Reconciliation Form pm1 - Thank You Letter pm1 - Antibiotic Education pm1 - Prescription Opioid Use pm1 Prescriptions: - Augmentin 875-125 mg Oral Tablet - take 1 tablet by ORAL route every 12 hours for 10 days; 20 tablet; Refills: 0, pm1 Product Selection Permitted - acetaminophen-codeine 300-15 mg Oral tablet - take 1 tablet by ORAL route every 6 hours As needed as needed; 12 tablet; pm1 Refills: 0, Product Selection Permitted Signatures: Dispatcher [employer] Curly Hoyt MD MD pkl Maisha Platt RN RN lp1 Lewis Avendano, SAÚL DRAFTSPERSON pm1
[2020-12-05 22:56] VITALS: BP 110/79; TEMP 97.6; O2SAT 99
--- NOTE | 2020-12-06 08:00 | RAD REPORT ---
EXAM DESCRIPTION: RAD - Hand Right 3 View - 12/05/2020 9:59 pm CLINICAL HISTORY: ANIMAL BITE COMPARISON: No comparisons FINDINGS: No acute fracture. No malalignment. No significant focal degenerative changes. IMPRESSION: No acute osseous abnormality involving the right hand.
== END 2020-12-05 22:41 | disposition home or self-care (01) ==
LOC: ER 20:37
DX: S61.232A Puncture wound without foreign body of right middle finger without damage to nail, initial encounter (principal); W55.01XA Bitten by cat, initial encounter; Y93.89 Activity, other specified; Y92.009 Unspecified place in unspecified non-institutional (private) residence as the place of occurrence of the external cause; F17.210 Nicotine dependence, cigarettes, uncomplicated; Z23 Encounter for immunization
CPT/HCPCS: 73130; 90714; 99284; J0295

== ENCOUNTER 2022-12-05 11:29 | Emergency (ER) | payer SELFPAY ==
--- OUTSIDE RECORDS SUMMARY | 2022-12-05 11:32 | XMS REPORT | Continuity of Care Document ---
:1990 Author Organization [facility] t Address [address] [place] [address] [place] [id number] Care Team Providers Name Role Phone Lisa Lay Primary Care Physician Elias Melendez Attending Clinician ELIAS SCOTT Attending Clinician Unavailable LISA ALBERTS Attending Clinician Unavailable Lab, Ang - Db Attending Clinician Unavailable Lisa Lay Attending Clinician OLY DIAZ Attending Clinician Unavailable Oly Diaz DO Attending Clinician NORAH WATSON Attending Clinician Unavailable Danielle Gaspar LVN Attending Clinician Unavailable Doctor Unassigned, [place] Attending Clinician Unavailable Payers Payer Name Policy Type Policy Number Effective Date Expiration Date S frederick [facility] [id number] 2017 00:00:00 Problems Condition Condition Condition Status Onset Resolution Last Treating Co mments Source Name Details Category Date Date Treatment Clinician Date Anemia, Anemia, Disease Active Univers unspecifie unspecifie 08-22 it y of d type d type 00:00: [place] 00 Medical Branch Other Other Disease Active Univers depression depression 3-20 it y of 00:00: Medical Branch Chronic Chronic Disease Active Univers fatigue fatigue 3-20 ity of 00:00: Medical Branch Anxiety Anxiety Disease Active Univers 3-20 ity of 00:00: Medical Branch Chest Chest Disease Active Univers tightness tightness 3-20 ity of 00:00: [place] [facility] History of History of Disease Active U nivers shortness shortness 3-20 ity of of breath [facility] Dizziness Dizziness Disease Active Uni vers 3-20 ity of 00:00: [place] [facility] Back pain Back pain Disease Active Uni vers 7-06 ity of 00:00: Medical Branch Allergies, Adverse Reactions, Alerts Allergy Allergy Status Severity Reaction(s) Onset Inactive Treating Comm ents Source Name Type Date Date Clinician No Known DA Active U 2012-02 [facility] Allergie 02-27 Clear s 00:00: [address] NO KNOWN Drug Active Univers ALLERGIE Class ity of S [facility] Social History Social Habit Start Date Stop Date Quantity Comments Source History SDOH University o f Alcohol Frequency [facility] [place] edical Branch History SDOH University o f Alcohol Std Drinks [facility] History SDOH University o f Alcohol Binge [place] [facility] Sexual orientation Univer sit of [facility] History of tobacco Cigarette Smoker University of use [facility] ASSERTION [facility] Exposure to 2022-03-19 2022-03-29 Not sure University SARS-CoV-2 (event) 00:00:00 08:05:00 [facility] Alcohol intake 2021-08-05 2021-08-05 Current drinker Unive rsity of 00:00:00 00:00:00 of alcohol [facility] (finding) Branch History of Social 2021-08-05 2021-08-05 Univers ity of function 00:00:00 00:00:00 [facility] Tobacco use and 2017-05-08 2017-05-08 Smokeless Universit y of exposure 00:00:00 00:00:00 tobacco non-user [facility] dical [place] Alcohol Comment 2017-05-08 2017-05-08 social Universit y of 00:00:00 00:00:00 [facility] Cigarettes smoked 2017-05-08 2017-05-08 Univers ity of current (pack per 00:00:00 00:00:00 ) - Reported Branch Cigarette 2017-05-08 2017-05-08 University of pack-years 00:00:00 00:00:00 [facility] Sex Ass[birth year] Universit y of 00:00:00 00:00:00 [facility] Smoking Status Start Date Stop Date Source Smokes tobacco daily 2017-05-08 00:00:00 Univers ity of [facility] Medications Ordered Filled Start Stop Current Ordering Indication Dosage Frequency Signature Comments Components Source Medication Medication Date Date Medication? Clinician (SIG) Name Name ondansetron 2022- No 4mg 4 mg, Univ ers (ZOFRAN-ODT 03-29 Oral, ity of ) 15:15: 14:20 ONCE, 1 [place] disintegrat 00 :00 dose, On Medi lew ing tablet Sun03/29/22 Bra nch 4 mg at 0915, Routine maalox:diph 2022- No 15mL 15 mL, Uni vers enhydrAMINE 03-29 Oral, ity of :lidocaine 14:30: 14:20 ONCE, 1 [place] as 2 % viscous 00 :00 dose, On Medi lew 1:1:1 Sun03/29/22 Branch (FIRST-MOUT at 0830, HWASH BLM) Routine oral suspension 15 mL acetaminoph 2022- No 1000mg 1,000 mg, Univers en 03-29 Oral, ity of (TYLENOL) 14:30: 14:19 ONCE, [place] tablet [place] :[place] dose, On Medical 1,000 mg Sun03/29/22 Branc h at 0830, NATALIE benzonatate 2022-0 Yes [id number] 100mg Take 1 Univers 100 mg 2-08 capsule by ity of capsule 00:00: mouth 3 (three) Medical times Branch daily as needed for Cough. benzonatate 2022-0 Yes [id number] 100mg Take 1 Univers 100 mg 2-08 capsule by ity of capsule 00:00: mouth 3 (three) Medical times Branch daily as needed for Cough. montelukast 2022- No [id number] 10mg Take 1 Univers (SINGULAIR) 03-29-24 tablet by it y of 10 mg 00:00: 05:59 mouth in [place] tablet 00 :00 the [facility] for 15 days. montelukast 2022- No [id number] 10mg Take 1 Univers (SINGULAIR) 2-24 tablet by it y of 10 mg 00:00: 05:59 mouth in [place] tablet 00 :00 the [facility] for 15 days. ondansetron 2022- No [id number] 4mg Take 1 Univers 4 mg 03-29 tablet by ity of disintegrat 00:00: 05:59 [place] tablet 00 :00 every 8 Medica l (eight) Branch hours as needed for Nausea and Vomiting (N/V) for up to 5 days. predniSONE 2022- No [id number] 40mg Take 2 Univers 20 mg 03-29 tablets by ity of tablet 00:00: 05:59 mouth in [place] 00 :00 the [facility] for 5 days. No known 2021-02 No No known Unive rs medications 1-16 medication it y of 14:37: s [address] No known 2021- No No known Unive rs medications 1-16 medication it y of 14:37: s [address] No known 2021-02 No No known Unive rs medications 1-16 medication it y of 14:37: [address] No known 2021- No No known Unive rs medications 1-06 medication it y of 16:00: s [address] No known 2021-0 No Univers medications 6-17 ity of 14:04: [address] No known 2021-0 No Univers medications 6-17 ity of 14:04: [address] No known 2021-0 No Univers medications 6-17 ity of 14:04: [address] SERTRALINE 2017-02- No [id number] 50mg TAKE 1 Univers 50 mg 0-16 06-17 4104 TABLET BY ity of tablet 00:00: 00:00 MOUTH [place] 00 :00 DAILY, Medical FOLLOW UP Branch FOR REFILLS SERTRALINE 2017-02- No [id number] 50mg TAKE 1 Univers 50 mg 0-16 06-17 4104 TABLET BY ity of tablet 00:00: 00:00 MOUTH [place] 00 :00 DAILY, Medical FOLLOW UP Branch FOR REFILLS Immunizations Ordered Filled Date Status Comments Source Immunization Name Immunization Name Influenza Virus 2021-11-29 Completed Universit y of Vaccine Quad IM, 00:00:00 [place] Me dical Preserv and ABX Branch Free 6 MO-64 YRS Influenza Virus 2021-11-29 Completed Universit y of Vaccine [place] IM, 00:00:00 [place] Me dical Preserv and ABX Branch Free 6 MO-64 YRS Influenza Virus 2021-11-29 Completed Universit y of Vaccine [facility] IM, 00:00:00 [place] Me dical Preserv and ABX Branch Free 6 MO-64 YRS Influenza Virus 2021-11-29 Completed Universit y of Vaccine [facility] IM, 00:00:00 [place] Me dical Preserv and ABX Branch Free 6 MO-64 YRS Influenza Virus 2021-11-29 Completed Universit y of Vaccine [facility] IM, 00:00:00 [place] Me dical Preserv and ABX Branch Free 6 MO-64 YRS TDAP 2018-07-22 Completed University of 00:00:00 [facility] TDAP 2018-07-22 Completed University of 00:00:00 [facility] TDAP 2018-07-22 Completed University of 00:00:00 [facility] TDAP 2018-07-22 Completed University of 00:00:00 [facility] TDAP 2018-07-22 Completed University of 00:00:00 [facility] TDAP 2018-07-22 Completed University of 00:00:00 [facility] TDAP 2018-07-22 Completed University of 00:00:00 [facility] TDAP 2018-07-22 Completed University of 00:00:00 [facility] TDAP 2018-07-22 Completed University of 00:00:00 [facility] TDAP 2018-07-22 Completed University of 00:00:00 [facility] TDAP 2018-07-22 Completed University of 00:00:00 [facility] TDAP Unknown Completed [facility] TDAP Unknown Completed [facility] Vital Signs Vital Name Observation Time Observation Value Comments Source Systolic blood 2022-03-29 14:08:00 97 mm[Hg] Univer sity of pressure [place] [facility] Diastolic blood 2022-03-29 14:08:00 70 mm[Hg] Unive rsity of pressure [place] [facility] Heart rate 2022-03-29 14:08:00 76 /min Universi ty of [place] [facility] Body temperature 2022-03-29 14:08:00 37 Codie Univ ersity of [place] [facility] Respiratory rate 2022-03-29 14:08:00 14 /min Univ ersity of [place] [facility] Body height 2022-03-29 14:08:00 175.3 cm Universi ty of [place] [facility] Body weight 2022-03-29 14:08:00 54.432 kg Universi ty of [place] [facility] BMI 2022-03-29 14:08:00 17.72 kg/m2 Universi ty of [place] [facility] Oxygen saturation in 2022-03-29 14:08:00 100 /min University of Arterial blood by [place] [facility] [facility]w Pulse oximetry Branch Systolic blood 2022-01-04 20:26:00 103 mm[Hg] Univer sity of pressure [place] [facility] Diastolic blood 2022-01-04 20:26:00 68 mm[Hg] Unive rsity of pressure [place] [facility] Heart rate 2022-01-04 20:26:00 65 /min Universi ty of [place] [facility] Body temperature 2022-01-04 20:26:00 36.94 Codie Univ ersity of [place] [facility] Body height 2022-01-04 20:26:00 175.3 cm Universi ty of [place] [facility] Body weight 2022-01-04 20:26:00 55.792 kg Universi ty of [place] [facility] BMI 2022-01-04 20:26:00 18.16 kg/m2 Universi ty of [place] [facility] Oxygen saturation in 2022-01-04 20:26:00 99 /min University of Arterial blood by [place] [facility]w Pulse oximetry Branch Systolic blood 2021-12-25 22:00:00 136 mm[Hg] Univer sity of pressure [place] [facility] Diastolic blood 2021-12-25 22:00:00 85 mm[Hg] Unive rsity of pressure [place] [facility] Heart rate 2021-12-25 22:00:00 88 /min Universi ty of [place] [facility] Body temperature 2021-12-25 22:00:00 37 Codie Univ ersity of [place] [facility] Respiratory rate 2021-12-25 22:00:00 16 /min Univ ersity of [place] [facility] Body height 2021-12-25 22:00:00 175.3 cm Universi ty of [place] [facility] Body weight 2021-12-25 22:00:00 58.968 kg Universi ty of [place] [facility] BMI 2021-12-25 22:00:00 19.20 kg/m2 Universi ty of [place] [facility] [place] Oxygen saturation in 2021-12-25 22:00:00 98 /min University of Arterial blood by [facility] Pulse oximetry Branch Systolic blood 2021-08-05 18:54:00 119 mm[Hg] Univer sity of pressure [place] [facility] [place] Diastolic blood 2021-08-05 18:54:00 80 mm[Hg] Unive rsity of pressure [place] [facility] [place] Heart rate 2021-08-05 18:54:00 75 /min Universi ty of [place] [facility] [place] Body temperature 2021-08-05 18:54:00 37 Codie [facility] [place] [facility] [place] Body height 2021-08-05 18:54:00 175.3 cm Universi ty of [place] [facility] Body weight 2021-08-05 18:54:00 55.883 kg Universi ty of [place] [facility] BMI 2021-08-05 18:54:00 18.19 kg/m2 Universi ty of [place] [facility] Oxygen saturation in 2021-08-05 18:54:00 100 /min University of Arterial blood by [facility] Pulse oximetry Branch Procedures Procedure Date / Time Performed Performing Clinician Sour e RAPID STREP SCREEN 2022-03-29 14:19:00 Elias Scott [facility] FOR GROUP A Medical Branch COVID-19 (ID NOW 2022-03-29 14:19:00 Elias Scott [facility] RAPID TESTING) Medical Branch CONSENT/REFUSAL FOR 2022-03-29 13:57:43 Doctor Unassigned, No [facility] [place] DI[facility]NOSIS AND Name Medical Branch TREATMENT POCT FLU A AND B 2022-01-04 00:00:00 Lisa Alberts [facility] (MOLECULAR) Medical Branch CONSENT/REFUSAL FOR 2021-12-25 21:42:36 Doctor Unassigned, No [facility] [place] DIAGNOSIS AND Name Medical Branch TREATMENT Encounters Start End Encounter Admission Attending Care Care Encounter Source Date/Time Date/Time Type Type Clinicians Facility Department ID 2022-04-10 2022-04-10 PATTI Torres [id number] Univers 00:00:00 00:00:00 Elias PEDIATRIC [id number] ity of [id number] [id number] [facility] PRIMARY 370 Branch CARE CLINIC 2022-03-29 2022-03-29 Emergency X SONIA, [facility] ERT [id number] Univers 08:11:00 08:49:00 GUZMANGALA ity of [facility] 2022-03-29 2022-03-29 Emergency Sonia, [facility] [id number] Univers 08:11:00 08:49:00 [facility] [id number] i ty of [place] [id number] [place] [id number] [facility] [address] [place] 2022-01-04 2022-01-04 [facility] [id number] Univers 15:00:00 15:18:33 LISA mike [facility] 2022-01-04 2022-01-04 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, Ang - Db [facility] [id number] Univers 15:00:00 15:15:00 Visit Lisa Alberts HEALTH [id number] ity of [place] [id number] Sanjay as SHO?BLEA [phone] [facility] [address] MEDICAL OFFICE BUILDING 2022-01-04 2022-01-04 [facility] [id number] Univers 14:30:00 14:59:07 Visit Lisa Harris HEALTH [id number] i ty of [place] [id number] Sanjay as SHO?BLEA [id number] [facility] [address] MEDICAL OFFICE BUILDING 2021-12-25 2021-12-25 Emergency X JOE [facility] ERT [id number] Univers 16:10:00 16:33:00 OLY mckeon of [facility] 2021-12-25 2021-12-25 Emergency [facility] [id number] [facility] 16:10:00 16:33:00 Oly ALFONSOMUKUND [id number] ity of [id number] [place] [id number] [address] 2021-10-07 2021-10-07 Outpatient R WALTER, [facility] [id number] [facility] 10:30:00 10:30:00 NORAH medina [facility] 2021-08-22 2021-08-22 Telephone [facility] [id number] Univers 00:00:00 00:00:00 Lisa A HEALTH [id number] i ty of [place] [id number] Sanjay as SHO?BLEA [id number] [address] MEDICAL OFFICE [facility] 2021-08-15 2021-08-15 [facility] [id number] Univers 00:00:00 00:00:00 Secure Msg Lisa A HEALTH [id number] ity of [place] [id number] Sanjay as SHO?BLEA [id number] [address] OFFICE [facility] 2021-08-15 2021-08-15 Patient [facility] [id number] Univers 00:00:00 00:00:00 Secure Msg Danielle M HEALTH [id number] ity of [place] [id number] Sanjay as SHO?BLEA [id number] [address] OFFICE [facility] 2021-08-12 2021-08-12 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, Toney - Cecilio [facility] 1.2.840.1 [id number] Univers 08:15:00 08:30:00 Visit LexusTroyLisa A HEALTH [id number] ity of [place] [id number] Sanjay as SHO?BLEA [id number] [facility] [address] MEDICAL OFFICE BUILDING 2021-08-12 2021-08-12 Outpatient R [facility] [id number] Univers 08:15:00 08:15:00 ity of [facility] 2021-08-12 2021-08-12 [facility] [id number] Univers 08:15:00 08:15:00 LISA [facility] 2021-08-09 2021-08-09 Patient Doctor MARKUS [id number] Univers 00:00:00 00:00:00 Secure Msg Unassigned, BRIGIDA [id number] ity of [place] [facility] [id number] Sanjay as [phone] [address] 2021-08-05 2021-08-05 Office [facility] [id number] Univers 13:30:00 14:00:00 Visit [facility] [id number] i ty of [place] [id number] Sanjay as SHO?BLEA [id number] [address] MEDICAL OFFICE [facility] 2021-08-05 2021-08-05 Outpatient [facility] [id number] Univers 13:30:00 13:30:00 [facility] 2021-08-05 2021-08-05 Orders Doctor MARKUS [id number] Univers 00:00:00 00:00:00 Only Unassigned, BRIGIDA [id number] ity of [place] [facility] [id number] Sanjay as [phone] [address] 2021-01-31 2021-01-31 Orders Doctor MARKUS [id number] Univers 00:00:00 00:00:00 Only Unassigned, BRIGIDA [id number] ity of [place] [facility] [id number] Sanjay as [id number] [address] 2019-04-30 2019-04-30 Outpatient [facility] [id number] Univers 08:20:00 08:20:00 LISA mckeon [facility] Results Test Description Test Time Test Comments Results Result Comments Source POCT FLU A AND B (MOLECULAR) 2022-01-04 21:04:00 Test Item Value Reference Range Interpretation Comme nts POCT INFLUENZA A (test code = 3840) Negative Negative - Negativ e POCT INFLUENZA B (test code = 3841) Negative Negative - Negativ e [facility] ([facility])2022-01-04 21:04:00 Test Item Value Reference Range Interpretation Comments POCT INFLUENZA A (test code = Negative Negative - Negative 3840) POCT INFLUENZA B (test code = Negative Negative - Negative 3841) [facility]
--- NOTE | 2022-12-05 13:20 | ER ---
Nurse's Notes [facility] Name: Becca Sloan Age: 32 yrs Sex: Female : 1990 Arrival Date: 12/05/2022 Time: 11:29 Bed IW2 Private MD: Diagnosis: Influenza due to identified novel influenza A virus-B Presentation: 12/05 12:02 Chief complaint: Patient states: she has been having flu-like symptoms for approx 4 ap3 days now. patient reports fevers of 101 at home. Coronavirus screen: Client presents with at least one sign or symptom that may indicate coronavirus-19. Ebola Screen: No symptoms or risks identified at this time. Initial Sepsis Screen: Does the patient meet any 2 criteria? HR > 90 bpm. Does the patient have a suspected source of infection? No. Patient's initial sepsis screen is negative. Risk Assessment: Do you want to hurt yourself or someone else? Patient reports no desire to harm self or others. Onset of symptoms was December 01, 2022. 12:02 Method Of Arrival: Ambulatory ap3 12:02 Acuity: GREGG 4 ap3 Triage Assessment: 12:04 General: Appears ill, Behavior is calm, cooperative, appropriate for age. Pain: ap3 Complains of pain in generalized body aches, legs Pain currently is 5 out of 10 on a pain scale. Neuro: Level of Consciousness is awake, alert, obeys commands, Oriented to person, place, time, situation. Cardiovascular: Patient's skin is warm and dry. Respiratory: Airway is patent Respiratory effort is even, unlabored, Respiratory pattern is regular, symmetrical. MANAGER SERVICES: 13:22 LMP N/A - control method, Not ap3 Historical: - Allergies: 12:03 No Known Allergies; ap3 - PMHx: 12:03 Anemia; Bipolar disorder; BORDERLINE PERSONALITY DISORDER; Endometrosis; ap3 - Immunization history:: Client reports having NOT received the Covid vaccine. - Social history:: Smoking status: Reported history of juuling and/or vaping. Screenin:05 [facility] ED Fall Risk Assessment (Adult) History of falling in the last 3 months, ap3 including since admission No falls in past 3 months (0 pts). Abuse screen: Denies threats or abuse. Nutritional screening: No deficits noted. Tuberculosis screening: No symptoms or risk factors identified. Vital Signs: 12:02 BP 111 / 80; Pulse 95; Resp 18; Temp 98.7(O); Pulse Ox 100% ; Weight 58.97 kg; ap3 ED Course: 11:32 Patient arrived in ED. mr 11:33 Asha Hartmann FNP-C is [facility]. kb 11:33 Lance Enamorado DO is Attending Physician. kb 12:03 Triage completed. ap3 12:05 Arm band placed on right wrist. ap3 12:11 Strep Sent. ap3 12:11 COVID-19 SARS RT PCR Sent. ap3 12:11 Flu Sent. ap3 13:22 Provided Education on: discharge instructions. ap3 13:22 Patient has correct armband on for positive identification. Adult w/ patient. ap3 13:22 No provider procedures requiring assistance completed. Patient did not have IV access ap3 during this emergency room visit. Administered Medications: No medications were administered Medication: 13:22 VIS not applicable for this client. ap3 Outcome: 13:19 Discharge ordered by . kb 13:22 Discharged to home ambulatory, ap3 13:22 Condition: good 13:22 Discharge instructions given to patient, Instructed on discharge instructions, follow up and referral plans. Demonstrated understanding of instructions, follow-up care, 13:25 Patient left the ED. ap3 Signatures: Asha Hartmann FNP-C FNP-Jojo Butler, Reg Reg LilyyadiSteffany, RN RN ap3
--- NOTE | 2022-12-05 13:20 | EDPHYS ---
Physician Documentation [facility] Name: Becca Sloan Age: 32 yrs Sex: Female : 1990 Arrival Date: 12/05/2022 Time: 11:29 Bed IW2 Private MD: ED Physician Lance Enamorado HPI: 12/05 13:19 This 32 yrs old Female presents to ER via Ambulatory with complaints of Flu Symptoms. kb 13:19 The patient or guardian reports cough, that is intermittent, described as mild, flu kb symptoms, low-grade fever, myalgias. Onset: The symptoms/episode began/occurred 4 day(s) ago. Severity of symptoms: At their worst the symptoms were mild, moderate, in the emergency department the symptoms are unchanged. Modifying factors: The symptoms are alleviated by nothing, the symptoms are aggravated by nothing. Associated signs and symptoms: Pertinent positives: earache, fever, rhinorrhea, sore throat. The patient has not experienced similar symptoms in the past. The patient has not recently seen a physician. 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 - Social history:: Smoking status: Reported history of juuling and/or vaping. ROS: 13:17 Abdomen/GI: Negative for abdominal pain, nausea, vomiting, diarrhea, and constipation, kb 13:17 Constitutional: Positive for body aches, fatigue, fever, malaise, 13:17 Respiratory: Positive for cough, 13:17 All other systems are negative, Exam: 13:18 Constitutional: This is a well developed, well nourished patient who is awake, alert, kb and in no acute distress. Head/Face: Normocephalic, atraumatic. ENT: Moist Mucous membranes Chest/axilla: Normal chest wall appearance and motion. Cardiovascular: Regular rate Respiratory: Respirations even and unlabored. No increased work of breathing. Talking in full sentences Abdomen/GI: Soft, non-tender. No distention Skin: Warm, dry with normal turgor. Normal color. MS/ Extremity: Pulses equal, no cyanosis. Neurovascular intact. Full, normal range of motion. Neuro: Awake and alert, GCS 15, oriented to person, place, time, and situation. Moves all extremities. Normal gait. Vital Signs: 12:02 BP 111 / 80; Pulse 95; Resp 18; Temp 98.7(O); Pulse Ox 100% ; Weight 58.97 kg; ap3 MDM: 11:33 Patient medically screened. kb 13:18 Differential diagnosis: flu, covid, uri, strep. Data reviewed: vital signs, nurses kb notes. Counseling: I had a detailed discussion with the patient and/or guardian regarding the historical points, exam findings, and any diagnostic results supporting the discharge/admit diagnosis, lab results, the need for outpatient follow up, a family practitioner, to return to the emergency department if symptoms worsen or persist or if there are any questions or concerns that arise at home. 12/05 11:37 Order name: Flu; Complete Time: 13:17 kb 12/05 11:37 Order name: COVID-19 SARS RT PCR; Complete Time: 13:24 kb 12/05 11:37 Order name: Strep kb 12/05 13:13 Order name: Throat Culture EDMS Administered Medications: No medications were administered Disposition: 15:28 I was immediately available on-site in the Emergency Department for consultation in the or3 care of the patient. Disposition Summary: 12/05/22 13:19 Discharge Ordered Notes: Location: Home kb Condition: Stable kb Diagnosis - Influenza due to identified novel influenza A virus - B kb Followup: kb - With: Emergency Department - When: As needed - Reason: Worsening of condition Followup: kb - With: Private Physician - When: 2 - 3 days - Reason: Recheck today's complaints, Continuance of care, Re-evaluation by your physician Discharge Instructions: - Discharge Summary Sheet kb - Influenza, Adult, [id number] kb Forms: - Medication Reconciliation Form kb - Thank You Letter kb - Antibiotic Education kb - Prescription Opioid Use kb - Patient Portal Instructions kb - Leadership Thank You Letter kb - Work release form ap3 Signatures: Dispatcher [employer] EDMS Asha Hartmann, Steffany Alvarez RN RN ap3 Lance Enamorado DO DO ms3
[2022-12-05 14:39] VITALS: BP 111/80; TEMP 98.7; O2SAT 100
== END 2022-12-05 13:25 | disposition home or self-care (01) ==
LOC: ER 11:29
DX: J10.1 Influenza due to other identified influenza virus with other respiratory manifestations (principal); Z20.822 Contact with and (suspected) exposure to COVID-19
CPT/HCPCS: 87070; 87081; 87635; 87804; 99283